=== PATIENT | female | born 1945 | race Two or more races ===

== ENCOUNTER → 2019-01-18 | Day surgery (SDC) | payer OTHER | END | disposition home or self-care (01) | LOC: FMAMMOTONE 10:10 | PROVIDERS: ATTEND Surgery Surgical Oncology | PROC: 0HBU3ZX Excision of Left Breast, Percutaneous Approach, Diagnostic (ICD-10-PCS; principal; 2019-01-18) | DX: Z53.8 Procedure and treatment not carried out for other reasons (principal); R92.1 Mammographic calcification found on diagnostic imaging of breast | CPT/HCPCS: 19081 ==